=== PATIENT | male | born 1990 | race African-American/Black ===

== ENCOUNTER 2018-06-06 04:21 | Emergency (ER) | payer BC, OTHER ==
[~2018-06-06] VITALS: Ht 180.3 cm; Wt 85.1 kg
[2018-06-06 04:43] VITALS: BP 133/72; PULSE 71; RESP 18; Ht 180.3 cm; Wt 85.1 kg
[2018-06-06] MEDS ORDERED: MUPI22OI2 TOP (05:51)
[2018-06-06] MEDS ORDERED: SULF1TAB31 PO (05:51)
[2018-06-06] MEDS ORDERED: CLOT30CR24 TOP (05:51)
[2018-06-06] MEDS ORDERED: IBUP-1542 PO (05:51)
--- NOTE | 2018-06-06 05:54 | ERD ---
ER Documentation Chief Complaint Chief Complaint R foot pain w/5th toe swelling x 3weeks HPI 28-year-old male presents with pain around his right fifth toe for last 3 weeks. He did notice some irritation on the right fourth webspace. Denies any history of trauma, fevers. Pain is starting to spread to the fifth toe. ROS All systems reviewed and are negative except as per history of present illness. Medications Home Meds Active Scripts Ibuprofen* (Motrin*) 600 Mg Tab, 600 MG PO Q6, #20 TAB Prov:JENNIFER GOLDSMITH MD 06/06/18 Mupirocin* (Bactroban*) 2% -22 Gram Oint...g., 1 APPLIC TOP BID for 7 Days, EA Prov:JENNIFER GOLDSMITH MD 06/06/18 Clotrimazole* (Clotrimazole* AF) 1% - 30 Gm Cream.gm., 1 APPLIC TOP BID for 10 Days, TUB Prov:JENNIFER GOLDSMITH MD 06/06/18 Sulfamethoxazole/Trimethoprim* (Bactrim Ds* Tablet) 1 Each Tablet, 1 TAB PO BID for 10 Days, #20 TAB Prov:JENNIFER GOLDSMITH MD 06/06/18 Allergies Allergies: Coded Allergies: No Known Allergy (Unverified , 06/06/18) PMhx/Soc Medical and Surgical Hx: pt denies Medical Hx, pt denies Surgical Hx Hx Alcohol Use: No Hx Substance Use: No Hx Tobacco Use: No Smoking Status: Never smoker FmHx Family History: No diabetes, No coronary disease, No other Physical Exam Vitals Vital Signs Date Temp Pulse Resp B/P (MAP) Pulse Ox O2 O2 Flow FiO2 Time Delivery Rate 06/06/18 97.4 71 18 133/72 98 04:43 (92) Physical Exam Const: No acute distress Head: Atraumatic Eyes: Normal Conjunctiva ENT: Normal External Ears, Nose and Mouth. Neck: Full range of motion. No meningismus. Resp: Clear to auscultation bilaterally Cardio: Regular rate and rhythm, no murmurs Abd: Soft, non tender, non distended. Normal bowel sounds Skin: No petechiae or rashes Back: No midline or flank tenderness Ext: No cyanosis, or edema. Maceration and irritation in the right fourth webspace. Slight redness extending to the right fifth toe. No deformities or bony tenderness. Neur: Awake and alert Psych: Normal Mood and Affect Results 24 hrs Current Medications Medications Dose Sig/Tamanna Start Time Status Last (Trade) Ordered Route PRN Stop Time Admin Dose Reason Admin Ibuprofen 600 mg ONCE ONCE 06/06/18 DC 06/06/18 (Motrin) PO 06:00 05:48 06/06/18 06:01 1 tab ONCE ONCE 06/06/18 DC 06/06/18 Trimethoprim/ PO 06:00 05:48 06/06/18 06:01 Sulfamethoxaz ole (Bactrim (Ds)) Procedures/MDM Patient was given Bactrim and ibuprofen. Small area of maceration was debrided of macerated skin which appears to be a thick callus or corn. Patient presents with what appears to be likely secondary infection with development of a corn, with possibly a tinea or excessive maceration of his right fifth webspace. Current signs or symptoms do not suggest osteomyelitis, deficits, ischemia. He will be treated with Bactrim, Motrin, Bactroban, recommendations for podiatry valuation for persistent symptoms. Should return for worsening redness, fevers, new worsening symptoms. The patient was stable with no new complaints during the ER course. Clinically, there is no current evidence to suggest meningitis, sepsis, acute abdomen, pneumonia, stroke, acute coronary syndrome, pulmonary embolism, aortic dissection or any other emergent condition appearing to require further evaluation or hospitalization. Patient counseled regarding my diagnosti c impression and care plan. Prior to discharge all questions answered. Pt agrees with treatment plan and understands strict return precautions. Pt is instructed to follow up with primary care provider within 24-48 hours. Precautionary instructions provided including instructions to return to the ER if not improving or for any worsening or changing symptoms or concerns. Departure Diagnosis: Primary Impression: Foot pain Laterality: right Qualified Codes: M79.671 - Pain in right foot Condition: Stable Patient Instructions: Cellulitis Referrals: NO PRIMARY,CARE PHYSICIAN (PCP) MAN SOLIS ABID N DPM HAGOPJANIAN, ARMEN DPM Additional Instructions: Likely infection possibly originating from fungal infection. Recheck for worsening redness, fevers, new or worsening symptoms. Recommend podiatry for persistent symptoms. May need authorization from primary doctor for podiatry visit. JENNIFER GOLDSMITH MD Jun 06, 2018 05:54
[2018-06-06] MEDS ORDERED: TRIMETHOPRIM/SULFAMETHOX (DS) TAB PO ONE (06:00)
[2018-06-06] MEDS ORDERED: IBUPROFEN 600 MG TAB PO ONE (06:00)
== END 2018-06-06 07:02 | disposition home or self-care (01) ==
LOC: FTE 04:21
DX: M79.671 Pain in right foot (principal)
CPT/HCPCS: 99283